=== PATIENT | male | born 1935 | race Caucasian/White ===

== ENCOUNTER → 2021-07-29 | Outpatient (CLI) | payer MEDICARE ==
[~2021-07-29] MED LIST: Z.0.ALLOPURINOL300 M PO
== END ==
LOC: US 12:30
PROVIDERS: ATTEND Internal Medicine Nephrology
DX: N17.9 Acute kidney failure, unspecified (principal)
CPT/HCPCS: 76770; 76857

== ENCOUNTER 2021-10-31 20:39 | Emergency (ER) | payer MEDICARE ==
[~2021-10-31] VITALS: Ht 180.3 cm; Wt 81.6 kg
[2021-10-31] MEDS ORDERED: ONDANSETRON HCL INJ 2MG/ML 2ML 2 MG/ML VIAL IV STA (21:34)
[2021-10-31 22:19] LABS: BASOPHILS % 0.4 % (0.0-1.0); EOSINOPHILS # (AUTO) 0.1 (0.0-0.4); EOSINOPHILS % 0.6 % (0.0-6.0); HEMATOCRIT 32.6 % (38.2-49.6); HEMOGLOBIN 10.8 g/dL (14.0-18.0); LYMPHOCYTES # (AUTO) 0.4 (1.0-3.2); LYMPHOCYTES % 4.8 % (18.0-39.1); MEAN CORPUSCULAR HEMOGLOBIN 31.8 pg (28-32); MEAN CORPUSCULAR HGB CONC 33.1 g/dL (31-35); MEAN CORPUSCULAR VOLUME 95.9 fL (81-99); MONOCYTES # (AUTO) 1.3 (0.2-0.8); MONOCYTES % 13.9 % (4.4-11.3); NEUTROPHILS # (AUTO) 7.2 (2.1-6.9); PLATELET COUNT 208 x10e3/uL (140-360); RED CELL DISTRIBUTION WIDTH 12.6 % (11.7-14.4)
[2021-10-31 22:37] LABS: ALBUMIN 3.1 g/dL (3.5-5.0); ALBUMIN/GLOBULIN RATIO 0.6 (0.8-2.0); ANION GAP 17.3 mmol/L (8-16); CALCIUM 8.8 mg/dL (8.4-10.2); CREATININE, SERUM 1.48 mg/dL (0.72-1.25); POTASSIUM 4.3 mmol/L (3.5-5.1)
[2021-10-31 22:44] LABS: CREATINE KINASE MB 2.1 ng/mL (0-5.0)
[2021-11-01 00:02] VITALS: BP 135/71
== END 2021-11-01 00:07 | disposition home or self-care (01) ==
LOC: ER 20:50
DX: R50.9 Fever, unspecified (principal); U07.1 COVID-19; R05.9 Cough, unspecified; E78.5 Hyperlipidemia, unspecified; E78.00 Pure hypercholesterolemia, unspecified; M10.9 Gout, unspecified; Z95.810 Presence of automatic (implantable) cardiac defibrillator; Z95.1 Presence of aortocoronary bypass graft
CPT/HCPCS: 36415; 70450; 71045; 80053; 82550; 82553; 84484; 85025; 93005; 99284; J2405; U0002

== ENCOUNTER 2021-11-03 05:47 | Inpatient (IN) | payer MEDICARE ==
[~2021-11-03] VITALS: Ht 180.3 cm; Wt 81.6 kg
[2021-11-03] MEDS ORDERED: SODIUM CHLORIDE 0.9% 1000ML 1,000 ML IV STA (06:01)
[2021-11-03 06:09] LABS: BASOPHILS % 0.2 % (0.0-1.0); HEMATOCRIT 31.6 % (38.2-49.6); LYMPHOCYTES # (AUTO) 0.5 (1.0-3.2); MEAN CORPUSCULAR HEMOGLOBIN 31.3 pg (28-32); MEAN CORPUSCULAR HGB CONC 34.8 g/dL (31-35); MONOCYTES % 6.3 % (4.4-11.3); NEUTROPHILS # (AUTO) 14.6 (2.1-6.9); NEUTROPHILS % 89.4 % (38.7-80.0); PLATELET COUNT 202 x10e3/uL (140-360); RED BLOOD COUNT 3.51 x10e6/uL (4.3-5.7); RED CELL DISTRIBUTION WIDTH 12.1 % (11.7-14.4)
[2021-11-03] MEDS ORDERED: ONDANSETRON HCL INJ 2MG/ML 2ML 2 MG/ML VIAL IV PRN ×2 (06:15→07:45)
[2021-11-03 06:33] LABS: ALBUMIN 2.4 g/dL (3.5-5.0); ALBUMIN/GLOBULIN RATIO 0.6 (0.8-2.0); CALCIUM 8.3 mg/dL (8.4-10.2); CREATININE, SERUM 1.5 mg/dL (0.72-1.25)
[2021-11-03] MEDS ORDERED: IOPAMIDOL 370 MG/ML 100 ML INFUS..BTL INJ ONE (06:57)
[2021-11-03 08:30] LABS: BAND NEUTROPHILS % (MANUAL) 2 %; LYMPHOCYTES % (MANUAL) 1 % (19-48); MONOCYTES % (MANUAL) 2 % (3.4-9.0); NEUTROPHILS % (MANUAL) 95 % (40-74); PLATELET ESTIMATE ADEQUATE; PLATELET MORPHOLOGY COMMENT NORMAL; RBC MORPHOLOGY COMMENT NORMAL
[2021-11-03 08:52] LABS: CLARITY,URINE CLEAR (CLEAR); COLOR,URINE YELLOW (YELLOW)
[2021-11-03 08:53] LABS: KETONES,URINE 1+ (NEGATIVE); LEUKOCYTE ESTERASE ,URINE NEGATIVE (NEGATIVE); NITRITE,URINE NEGATIVE (NEGATIVE); PROTEIN,URINE DIPSTICK 1+ (NEGATIVE); URINE UROBILINOGEN 1 mg/dL (0.2 - 1)
[2021-11-03 08:57] LABS: BACTERIA,URINE FEW /HPF; EPITHELIAL CELLS,URINE FEW /LPF
[2021-11-03 10:20] VITALS: BP 141/70
[2021-11-03] MEDS ORDERED: SODIUM CHLORIDE 0.9% 1000ML 1,000 ML IV SCH (11:00)
[2021-11-03 14:23] LABS: ANION GAP 17.4 mmol/L (8-16); CALCIUM 8.5 mg/dL (8.4-10.2); CREATININE, SERUM 1.2 mg/dL (0.72-1.25); POTASSIUM 4.4 mmol/L (3.5-5.1)
[2021-11-03] MEDS: FAMOTIDINE 20 MG TAB PO SCH (16:32)
[2021-11-03] MEDS: ENOXAPARIN SOD INJ 40 MG/0.4 ML SYR SC SCH (16:33)
[2021-11-03 16:34] VITALS: BP 146/72
[2021-11-03] MEDS ORDERED: MIDODRINE HCL5 MG PO (17:11)
[2021-11-03] MEDS ORDERED: ALBUTEROL/IPRATROPIUM 3 ML NEB NEB PRN (17:30)
[2021-11-03] MEDS: SODIUM CHLORIDE 0.9% 1000ML 1,000 ML IV SCH (18:11)
[2021-11-03] MEDS ORDERED: ENOXAPARIN INJ 80 MG/0.8 ML SYR SC SCH (18:15)
[2021-11-03] MEDS: DEXAMETHASONE SOD PHOS 10 MG/1 ML VIAL IV SCH (18:44)
[2021-11-03] MEDS: ACETAMINOPHEN 325 MG TAB PO PRN (18:56)
[2021-11-03] MEDS: ASCORBIC ACID 500 MG TAB PO SCH (19:21)
[2021-11-03] MEDS: ZINC SULFATE 50 MG CAP PO SCH (19:21)
[2021-11-03] MEDS ORDERED: REMDESIVIR 100MG 200 MG in SODIUM CHLORIDE 0.9% 100 ML IV SCH (19:45)
[2021-11-03 21:25] VITALS: BP 138/70
[2021-11-04] VITALS (8 sets, daily range): BP systolic 141–167; BP diastolic 74–98
[2021-11-04] MEDS: SODIUM CHLORIDE 0.9% 1000ML 1,000 ML IV SCH (05:04)
[2021-11-04 06:02] LABS: BASOPHILS % 0.1 % (0.0-1.0); HEMATOCRIT 32.3 % (38.2-49.6); HEMOGLOBIN 10.8 g/dL (14.0-18.0); LYMPHOCYTES # (AUTO) 0.3 (1.0-3.2); LYMPHOCYTES % 2.1 % (18.0-39.1); MEAN CORPUSCULAR HEMOGLOBIN 31.4 pg (28-32); MEAN CORPUSCULAR HGB CONC 33.4 g/dL (31-35); MEAN CORPUSCULAR VOLUME 93.9 fL (81-99); MONOCYTES # (AUTO) 0.7 (0.2-0.8); MONOCYTES % 4.8 % (4.4-11.3); NEUTROPHILS # (AUTO) 14.1 (2.1-6.9); NEUTROPHILS % 91.4 % (38.7-80.0); PLATELET COUNT 212 x10e3/uL (140-360); RED BLOOD COUNT 3.44 x10e6/uL (4.3-5.7); RED CELL DISTRIBUTION WIDTH 12.5 % (11.7-14.4)
[2021-11-04 06:34] LABS: ANION GAP 16.6 mmol/L (8-16); CALCIUM 8.5 mg/dL (8.4-10.2); CREATININE, SERUM 1.05 mg/dL (0.72-1.25); POTASSIUM 4.6 mmol/L (3.5-5.1)
[2021-11-04] MEDS: DEXAMETHASONE SOD PHOS 10 MG/1 ML VIAL IV SCH (09:12)
[2021-11-04] MEDS: CEFTRIAXONE 2 GM in SODIUM CHLORIDE 0.9% 100 ML IV SCH (09:12)
[2021-11-04] MEDS: ASCORBIC ACID 500 MG TAB PO SCH ×2 (09:13→18:12)
[2021-11-04] MEDS: ALLOPURINOL 300 MG TAB PO SCH (09:13)
[2021-11-04] MEDS: ZINC SULFATE 50 MG CAP PO SCH (09:18)
[2021-11-04] MEDS: FAMOTIDINE 20 MG TAB PO SCH ×2 (09:18→16:51)
[2021-11-04 09:25] LABS: BASOPHILS % 0.1 % (0.0-1.0); EOSINOPHILS % 0.1 % (0.0-6.0); HEMATOCRIT 32.4 % (38.2-49.6); HEMOGLOBIN 11.1 g/dL (14.0-18.0); LYMPHOCYTES # (AUTO) 0.4 (1.0-3.2); LYMPHOCYTES % 2.4 % (18.0-39.1); MEAN CORPUSCULAR HEMOGLOBIN 31.2 pg (28-32); MEAN CORPUSCULAR HGB CONC 34.3 g/dL (31-35); MONOCYTES # (AUTO) 0.9 (0.2-0.8); MONOCYTES % 5.3 % (4.4-11.3); NEUTROPHILS # (AUTO) 14.8 (2.1-6.9); NEUTROPHILS % 90.5 % (38.7-80.0); PLATELET COUNT 258 x10e3/uL (140-360); RED BLOOD COUNT 3.56 x10e6/uL (4.3-5.7); RED CELL DISTRIBUTION WIDTH 12.3 % (11.7-14.4)
[2021-11-04 09:48] LABS: ALBUMIN 2.2 g/dL (3.5-5.0); ALBUMIN/GLOBULIN RATIO 0.5 (0.8-2.0); ANION GAP 17.4 mmol/L (8-16); CALCIUM 8.5 mg/dL (8.4-10.2); CREATININE, SERUM 1.07 mg/dL (0.72-1.25); POTASSIUM 4.4 mmol/L (3.5-5.1)
[2021-11-04] MEDS: Morphine 2mg Syringe 2 MG/ML SYR IV PRN (10:50)
[2021-11-04 11:33] LABS: BAND NEUTROPHILS % (MANUAL) 2 %; MONOCYTES % (MANUAL) 2 % (3.4-9.0); NEUTROPHILS % (MANUAL) 96 % (40-74); PLATELET ESTIMATE ADEQUATE; PLATELET MORPHOLOGY COMMENT FEW LARGE; RBC MORPHOLOGY COMMENT NORMAL
[2021-11-04] MEDS: REMDESIVIR 100MG 100 MG in SODIUM CHLORIDE 0.9% 100 ML IV SCH (16:02)
[2021-11-04] MEDS: ENOXAPARIN SOD INJ 40 MG/0.4 ML SYR SC SCH (16:50)
[2021-11-05] VITALS (8 sets, daily range): BP systolic 110–164; BP diastolic 68–92
[2021-11-05] MEDS: CEFTRIAXONE 2 GM in SODIUM CHLORIDE 0.9% 100 ML IV SCH (08:06)
[2021-11-05] MEDS: DEXAMETHASONE SOD PHOS 10 MG/1 ML VIAL IV SCH (08:06)
[2021-11-05] MEDS: FAMOTIDINE 20 MG TAB PO SCH ×2 (08:06→18:03)
[2021-11-05] MEDS: ALLOPURINOL 300 MG TAB PO SCH (08:07)
[2021-11-05] MEDS: ZINC SULFATE 50 MG CAP PO SCH (08:07)
[2021-11-05] MEDS: DOCUSATE SODIUM 100 MG CAP PO SCH (08:07)
[2021-11-05] MEDS: SODIUM CHLORIDE 0.9% 1000ML 1,000 ML IV SCH (09:30)
[2021-11-05 10:29] LABS: BASOPHILS % 0.2 % (0.0-1.0); HEMATOCRIT 33.6 % (38.2-49.6); HEMOGLOBIN 11.5 g/dL (14.0-18.0); LYMPHOCYTES # (AUTO) 0.7 (1.0-3.2); LYMPHOCYTES % 3.4 % (18.0-39.1); MEAN CORPUSCULAR HEMOGLOBIN 31.3 pg (28-32); MEAN CORPUSCULAR HGB CONC 34.2 g/dL (31-35); MEAN CORPUSCULAR VOLUME 91.6 fL (81-99); MONOCYTES # (AUTO) 1.2 (0.2-0.8); MONOCYTES % 5.8 % (4.4-11.3); NEUTROPHILS # (AUTO) 17.6 (2.1-6.9); NEUTROPHILS % 88.5 % (38.7-80.0); PLATELET COUNT 292 x10e3/uL (140-360); RED BLOOD COUNT 3.67 x10e6/uL (4.3-5.7); RED CELL DISTRIBUTION WIDTH 12.8 % (11.7-14.4)
[2021-11-05 10:44] LABS: ALBUMIN 2.3 g/dL (3.5-5.0); ALBUMIN/GLOBULIN RATIO 0.5 (0.8-2.0); ANION GAP 16.5 mmol/L (8-16); CALCIUM 9.4 mg/dL (8.4-10.2); POTASSIUM 4.5 mmol/L (3.5-5.1)
[2021-11-05 11:21] LABS: BAND NEUTROPHILS % (MANUAL) 1 %; LYMPHOCYTES % (MANUAL) 5 % (19-48); MONOCYTES % (MANUAL) 3 % (3.4-9.0); NEUTROPHILS % (MANUAL) 91 % (40-74)
[2021-11-05 11:22] LABS: PLATELET ESTIMATE ADEQUATE; PLATELET MORPHOLOGY COMMENT NORMAL; RBC MORPHOLOGY COMMENT NORMAL
[2021-11-05] MEDS: REMDESIVIR 100MG 100 MG in SODIUM CHLORIDE 0.9% 100 ML IV SCH (14:29)
[2021-11-05] MEDS: ENOXAPARIN SOD INJ 40 MG/0.4 ML SYR SC SCH (18:02)
[2021-11-05] MEDS: ASCORBIC ACID 500 MG TAB PO SCH (18:02)
[2021-11-05] MEDS: ATORVASTATIN 10 MG TAB PO SCH (21:22)
[2021-11-06] VITALS (7 sets, daily range): BP systolic 131–168; BP diastolic 62–88
[2021-11-06] MEDS: SODIUM CHLORIDE 0.9% 1000ML 1,000 ML IV SCH ×2 (01:00→11:14)
[2021-11-06 06:17] LABS: BASOPHILS # (AUTO) 0.1 (0.0-0.1); BASOPHILS % 0.4 % (0.0-1.0); EOSINOPHILS % 0.1 % (0.0-6.0); HEMATOCRIT 33.5 % (38.2-49.6); HEMOGLOBIN 11.6 g/dL (14.0-18.0); LYMPHOCYTES # (AUTO) 0.8 (1.0-3.2); LYMPHOCYTES % 5.9 % (18.0-39.1); MEAN CORPUSCULAR HEMOGLOBIN 31.1 pg (28-32); MEAN CORPUSCULAR HGB CONC 34.6 g/dL (31-35); MEAN CORPUSCULAR VOLUME 89.8 fL (81-99); MONOCYTES # (AUTO) 1.3 (0.2-0.8); MONOCYTES % 9.8 % (4.4-11.3); NEUTROPHILS # (AUTO) 10.7 (2.1-6.9); NEUTROPHILS % 79.5 % (38.7-80.0); PLATELET COUNT 228 x10e3/uL (140-360); RED BLOOD COUNT 3.73 x10e6/uL (4.3-5.7); RED CELL DISTRIBUTION WIDTH 13.1 % (11.7-14.4)
[2021-11-06 06:32] LABS: ALBUMIN 1.9 g/dL (3.5-5.0); ALBUMIN/GLOBULIN RATIO 0.5 (0.8-2.0); CREATININE, SERUM 0.83 mg/dL (0.72-1.25)
[2021-11-06] MEDS: CEFTRIAXONE 2 GM in SODIUM CHLORIDE 0.9% 100 ML IV SCH (09:35)
[2021-11-06] MEDS: FAMOTIDINE 20 MG TAB PO SCH ×2 (09:35→17:23)
[2021-11-06] MEDS: DOCUSATE SODIUM 100 MG CAP PO SCH (09:35)
[2021-11-06] MEDS: ASCORBIC ACID 500 MG TAB PO SCH ×2 (09:35→17:23)
[2021-11-06] MEDS: ZINC SULFATE 50 MG CAP PO SCH (09:35)
[2021-11-06] MEDS: ALLOPURINOL 300 MG TAB PO SCH (09:35)
[2021-11-06] MEDS: DEXAMETHASONE SOD PHOS 10 MG/1 ML VIAL IV SCH (09:36)
[2021-11-06] MEDS: Morphine 2mg Syringe 2 MG/ML SYR IV PRN (11:16)
[2021-11-06] MEDS: REMDESIVIR 100MG 100 MG in SODIUM CHLORIDE 0.9% 100 ML IV SCH (14:08)
[2021-11-06] MEDS: ENOXAPARIN SOD INJ 40 MG/0.4 ML SYR SC SCH (16:18)
[2021-11-06] MEDS: BISACODYL 5 MG TAB EC PO PRN (17:24)
[2021-11-06] MEDS: ATORVASTATIN 10 MG TAB PO SCH (20:05)
[2021-11-07] VITALS (7 sets, daily range): BP systolic 117–171; BP diastolic 85–94
[2021-11-07] MEDS: SODIUM CHLORIDE 0.9% 1000ML 1,000 ML IV SCH ×2 (03:05→17:26)
[2021-11-07] MEDS: HYDRALAZINE HCL 20 MG/ML VIAL IV PRN (05:55)
[2021-11-07 06:06] LABS: BASOPHILS # (AUTO) 0.1 (0.0-0.1); BASOPHILS % 0.5 % (0.0-1.0); HEMOGLOBIN 10.7 g/dL (14.0-18.0); LYMPHOCYTES # (AUTO) 0.9 (1.0-3.2); LYMPHOCYTES % 4.9 % (18.0-39.1); MEAN CORPUSCULAR HEMOGLOBIN 31.3 pg (28-32); MEAN CORPUSCULAR HGB CONC 33.4 g/dL (31-35); MEAN CORPUSCULAR VOLUME 93.6 fL (81-99); MONOCYTES # (AUTO) 1.6 (0.2-0.8); MONOCYTES % 9.2 % (4.4-11.3); NEUTROPHILS % 79.9 % (38.7-80.0); PLATELET COUNT 252 x10e3/uL (140-360); RED BLOOD COUNT 3.42 x10e6/uL (4.3-5.7); RED CELL DISTRIBUTION WIDTH 13.2 % (11.7-14.4)
[2021-11-07 06:29] LABS: ALBUMIN/GLOBULIN RATIO 0.6 (0.8-2.0); ANION GAP 15.1 mmol/L (8-16); CALCIUM 8.2 mg/dL (8.4-10.2); CREATININE, SERUM 0.84 mg/dL (0.72-1.25); POTASSIUM 4.1 mmol/L (3.5-5.1)
[2021-11-07] MEDS: FAMOTIDINE 20 MG TAB PO SCH ×2 (07:30→17:21)
[2021-11-07] MEDS: ASCORBIC ACID 500 MG TAB PO SCH ×2 (09:00→17:21)
[2021-11-07] MEDS: DEXAMETHASONE SOD PHOS 10 MG/1 ML VIAL IV SCH (09:27)
[2021-11-07 11:13] LABS: INR 0.91; PROTHROMBIN TIME 13.1 seconds (11.9-14.5)
[2021-11-07] MEDS ORDERED: BISACODYL 10 MG SUPP PR ONE ×2 (12:00→12:30)
[2021-11-07] MEDS: ALLOPURINOL 300 MG TAB PO SCH (14:12)
[2021-11-07] MEDS: ZINC SULFATE 50 MG CAP PO SCH (14:12)
[2021-11-07] MEDS: DOCUSATE SODIUM 100 MG CAP PO SCH (14:12)
[2021-11-07] MEDS: REMDESIVIR 100MG 100 MG in SODIUM CHLORIDE 0.9% 100 ML IV SCH (14:13)
[2021-11-07 14:18] LABS: BODY FLUID TYPE PERITONEAL
[2021-11-07 14:19] LABS: BODY FLUID APPEARANCE CLOUDY; BODY FLUID COLOR RED
[2021-11-07 14:55] LABS: RBC,BODY FLUID 7000 cells/uL; WBC,BODY FLUID 1144 cells/uL
[2021-11-07 16:22] LABS: LYMPHOCYTES,BODY FLUID 2 %; MONO/MACROPHG,BODY FLUID 11 %; NEUTROPHILS,BODY FLUID 87 %
[2021-11-07] MEDS: ENOXAPARIN SOD INJ 40 MG/0.4 ML SYR SC SCH (17:22)
[2021-11-07] MEDS: ATORVASTATIN 10 MG TAB PO SCH (20:24)
[2021-11-08] VITALS (8 sets, daily range): BP systolic 154–172; BP diastolic 76–99
[2021-11-08] MEDS: SODIUM CHLORIDE 0.9% 1000ML 1,000 ML IV SCH ×2 (05:35→16:51)
[2021-11-08 05:46] LABS: BASOPHILS # (AUTO) 0.2 (0.0-0.1); BASOPHILS % 0.8 % (0.0-1.0); EOSINOPHILS % 0.1 % (0.0-6.0); HEMATOCRIT 33.9 % (38.2-49.6); HEMOGLOBIN 11.9 g/dL (14.0-18.0); LYMPHOCYTES # (AUTO) 1.2 (1.0-3.2); LYMPHOCYTES % 6.5 % (18.0-39.1); MEAN CORPUSCULAR HEMOGLOBIN 31.2 pg (28-32); MEAN CORPUSCULAR HGB CONC 35.1 g/dL (31-35); MEAN CORPUSCULAR VOLUME 88.7 fL (81-99); MONOCYTES # (AUTO) 1.6 (0.2-0.8); MONOCYTES % 8.3 % (4.4-11.3); NEUTROPHILS # (AUTO) 14.1 (2.1-6.9); NEUTROPHILS % 74.3 % (38.7-80.0); PLATELET COUNT 322 x10e3/uL (140-360); RED BLOOD COUNT 3.82 x10e6/uL (4.3-5.7); RED CELL DISTRIBUTION WIDTH 13.2 % (11.7-14.4)
[2021-11-08 06:18] LABS: ALBUMIN 2.2 g/dL (3.5-5.0); ALBUMIN/GLOBULIN RATIO 0.5 (0.8-2.0); ANION GAP 16.9 mmol/L (8-16); CALCIUM 8.3 mg/dL (8.4-10.2); CREATININE, SERUM 0.9 mg/dL (0.72-1.25); POTASSIUM 3.9 mmol/L (3.5-5.1)
[2021-11-08] MEDS: DEXAMETHASONE SOD PHOS 10 MG/1 ML VIAL IV SCH (08:30)
[2021-11-08] MEDS: FAMOTIDINE 20 MG TAB PO SCH ×2 (08:30→16:51)
[2021-11-08] MEDS: ZINC SULFATE 50 MG CAP PO SCH (08:30)
[2021-11-08] MEDS: DOCUSATE SODIUM 100 MG CAP PO SCH (08:30)
[2021-11-08] MEDS: ASCORBIC ACID 500 MG TAB PO SCH ×2 (08:30→16:51)
[2021-11-08] MEDS: ALLOPURINOL 300 MG TAB PO SCH (08:30)
[2021-11-08] MEDS: CEFTRIAXONE 2 GM in SODIUM CHLORIDE 0.9% 100 ML IV SCH (10:05)
[2021-11-08] MEDS: ENOXAPARIN SOD INJ 40 MG/0.4 ML SYR SC SCH (16:51)
[2021-11-08] MEDS: ATORVASTATIN 10 MG TAB PO SCH (21:11)
[2021-11-09] VITALS (8 sets, daily range): BP systolic 150–184; BP diastolic 75–96
[2021-11-09] MEDS: ACETAMINOPHEN 325 MG TAB PO PRN (05:53)
[2021-11-09 09:22] LABS: BASOPHILS # (AUTO) 0.2 (0.0-0.1); BASOPHILS % 0.8 % (0.0-1.0); EOSINOPHILS # (AUTO) 0.1 (0.0-0.4); EOSINOPHILS % 0.4 % (0.0-6.0); HEMATOCRIT 31.9 % (38.2-49.6); HEMOGLOBIN 10.9 g/dL (14.0-18.0); LYMPHOCYTES # (AUTO) 1.7 (1.0-3.2); LYMPHOCYTES % 8.9 % (18.0-39.1); MEAN CORPUSCULAR HEMOGLOBIN 31.2 pg (28-32); MEAN CORPUSCULAR HGB CONC 34.2 g/dL (31-35); MEAN CORPUSCULAR VOLUME 91.4 fL (81-99); MONOCYTES # (AUTO) 1.8 (0.2-0.8); MONOCYTES % 9.8 % (4.4-11.3); NEUTROPHILS # (AUTO) 12.7 (2.1-6.9); NEUTROPHILS % 67.7 % (38.7-80.0); PLATELET COUNT 317 x10e3/uL (140-360); RED BLOOD COUNT 3.49 x10e6/uL (4.3-5.7)
[2021-11-09] MEDS ORDERED: ONDANSETRON HCL 4 MG ORAL DISINTEGRATING TAB PO PRN (09:30)
[2021-11-09 09:43] LABS: ALBUMIN 2.1 g/dL (3.5-5.0); ALBUMIN/GLOBULIN RATIO 0.6 (0.8-2.0); ANION GAP 14.6 mmol/L (8-16); CREATININE, SERUM 0.86 mg/dL (0.72-1.25); POTASSIUM 3.6 mmol/L (3.5-5.1)
[2021-11-09 10:25] LABS: BAND NEUTROPHILS % (MANUAL) 1 %; LYMPHOCYTES % (MANUAL) 7 % (19-48); METAMYELOCYTES % (MANUAL) 1 % (0-0); MONOCYTES % (MANUAL) 2 % (3.4-9.0); MYELOCYTES % (MANUAL) 7 % (0-0); NEUTROPHILS % (MANUAL) 81 % (40-74); PLATELET ESTIMATE ADEQUATE; RBC MORPHOLOGY COMMENT NORMAL
[2021-11-09 10:26] LABS: PLATELET MORPHOLOGY COMMENT FEW LARGE
[2021-11-09] MEDS: CEFTRIAXONE 2 GM in SODIUM CHLORIDE 0.9% 100 ML IV SCH (11:05)
[2021-11-09] MEDS: SODIUM CHLORIDE 0.9% 1000ML 1,000 ML IV SCH (11:05)
[2021-11-09] MEDS: DEXAMETHASONE SOD PHOS 10 MG/1 ML VIAL IV SCH (11:06)
[2021-11-09] MEDS: ASCORBIC ACID 500 MG TAB PO SCH ×2 (11:06→16:58)
[2021-11-09] MEDS: ZINC SULFATE 50 MG CAP PO SCH (11:06)
[2021-11-09] MEDS: ALLOPURINOL 300 MG TAB PO SCH (11:06)
[2021-11-09] MEDS: DOCUSATE SODIUM 100 MG CAP PO SCH (11:06)
[2021-11-09] MEDS: FAMOTIDINE 20 MG TAB PO SCH ×2 (11:06→16:58)
[2021-11-09] MEDS: Morphine 2mg Syringe 2 MG/ML SYR IV PRN (14:01)
[2021-11-09] MEDS: ENOXAPARIN SOD INJ 40 MG/0.4 ML SYR SC SCH (16:59)
[2021-11-09] MEDS: HYDRALAZINE HCL 20 MG/ML VIAL IV PRN (17:05)
[2021-11-09] MEDS: ATORVASTATIN 10 MG TAB PO SCH (20:15)
[2021-11-09] MEDS: BISACODYL 5 MG TAB EC PO PRN (20:15)
[2021-11-10] VITALS (8 sets, daily range): BP systolic 140–161; BP diastolic 74–86
[2021-11-10] MEDS: SODIUM CHLORIDE 0.9% 1000ML 1,000 ML IV SCH (01:52)
[2021-11-10] MEDS: HYDRALAZINE HCL 20 MG/ML VIAL IV PRN (06:08)
[2021-11-10 06:13] LABS: BASOPHILS # (AUTO) 0.1 (0.0-0.1); BASOPHILS % 0.5 % (0.0-1.0); EOSINOPHILS # (AUTO) 0.1 (0.0-0.4); EOSINOPHILS % 0.3 % (0.0-6.0); HEMOGLOBIN 10.4 g/dL (14.0-18.0); LYMPHOCYTES # (AUTO) 1.6 (1.0-3.2); MEAN CORPUSCULAR HEMOGLOBIN 30.5 pg (28-32); MEAN CORPUSCULAR HGB CONC 34.7 g/dL (31-35); MONOCYTES # (AUTO) 1.9 (0.2-0.8); MONOCYTES % 9.6 % (4.4-11.3); NEUTROPHILS # (AUTO) 14.5 (2.1-6.9); NEUTROPHILS % 72.1 % (38.7-80.0); PLATELET COUNT 329 x10e3/uL (140-360); RED BLOOD COUNT 3.41 x10e6/uL (4.3-5.7)
[2021-11-10 06:33] LABS: ALBUMIN 2.2 g/dL (3.5-5.0); ALBUMIN/GLOBULIN RATIO 0.6 (0.8-2.0); ANION GAP 13.9 mmol/L (8-16); CALCIUM 8.2 mg/dL (8.4-10.2); CREATININE, SERUM 0.81 mg/dL (0.72-1.25); POTASSIUM 3.9 mmol/L (3.5-5.1)
[2021-11-10 08:31] LABS: LYMPHOCYTES % (MANUAL) 1 % (19-48); METAMYELOCYTES % (MANUAL) 3 % (0-0); MONOCYTES % (MANUAL) 8 % (3.4-9.0); MYELOCYTES % (MANUAL) 5 % (0-0); NEUTROPHILS % (MANUAL) 83 % (40-74); PLATELET ESTIMATE ADEQUATE; PLATELET MORPHOLOGY COMMENT NORMAL; RBC MORPHOLOGY COMMENT NORMAL
[2021-11-10] MEDS: DOCUSATE SODIUM 100 MG CAP PO SCH (08:53)
[2021-11-10] MEDS: DEXAMETHASONE SOD PHOS 10 MG/1 ML VIAL IV SCH (08:53)
[2021-11-10] MEDS: FAMOTIDINE 20 MG TAB PO SCH ×2 (08:53→16:39)
[2021-11-10] MEDS: ZINC SULFATE 50 MG CAP PO SCH (08:53)
[2021-11-10] MEDS: ASCORBIC ACID 500 MG TAB PO SCH ×2 (08:53→16:39)
[2021-11-10] MEDS: ALLOPURINOL 300 MG TAB PO SCH (08:53)
[2021-11-10] MEDS: ENOXAPARIN SOD INJ 40 MG/0.4 ML SYR SC SCH (16:41)
[2021-11-10] MEDS: ATORVASTATIN 10 MG TAB PO SCH (21:13)
[2021-11-10] MEDS: BISACODYL 5 MG TAB EC PO PRN (21:13)
[2021-11-10] MEDS: ACETAMINOPHEN 325 MG TAB PO PRN (21:13)
[2021-11-11] VITALS: BP 165/87
[2021-11-11 04:00] VITALS: BP 162/77
[2021-11-11] MEDS: SODIUM CHLORIDE 0.9% 1000ML 1,000 ML IV SCH (04:32)
[2021-11-11 05:50] LABS: BASOPHILS # (AUTO) 0.1 (0.0-0.1); BASOPHILS % 0.3 % (0.0-1.0); EOSINOPHILS % 0.2 % (0.0-6.0); HEMOGLOBIN 10.5 g/dL (14.0-18.0); LYMPHOCYTES # (AUTO) 1.5 (1.0-3.2); LYMPHOCYTES % 7.9 % (18.0-39.1); MEAN CORPUSCULAR HEMOGLOBIN 31.3 pg (28-32); MEAN CORPUSCULAR VOLUME 89.6 fL (81-99); MONOCYTES # (AUTO) 1.9 (0.2-0.8); MONOCYTES % 9.8 % (4.4-11.3); NEUTROPHILS # (AUTO) 14.5 (2.1-6.9); NEUTROPHILS % 74.9 % (38.7-80.0); PLATELET COUNT 311 x10e3/uL (140-360); RED BLOOD COUNT 3.35 x10e6/uL (4.3-5.7); RED CELL DISTRIBUTION WIDTH 13.2 % (11.7-14.4)
[2021-11-11 06:11] LABS: ANION GAP 15.9 mmol/L (8-16); CALCIUM 8.1 mg/dL (8.4-10.2); CREATININE, SERUM 0.83 mg/dL (0.72-1.25); POTASSIUM 3.9 mmol/L (3.5-5.1)
[2021-11-11 08:51] VITALS: BP 155/76
[2021-11-11 08:58] VITALS: BP 155/76
[2021-11-11] MEDS: ASCORBIC ACID 500 MG TAB PO SCH (09:11)
[2021-11-11] MEDS: ZINC SULFATE 50 MG CAP PO SCH (09:11)
[2021-11-11] MEDS: FAMOTIDINE 20 MG TAB PO SCH (09:11)
[2021-11-11] MEDS: DOCUSATE SODIUM 100 MG CAP PO SCH (09:11)
[2021-11-11] MEDS: ALLOPURINOL 300 MG TAB PO SCH (09:11)
[2021-11-11] MEDS ORDERED: Docusate Sodium PO (10:48)
[2021-11-11] MEDS ORDERED: LIPITOR10 MG PO (10:48)
[2021-11-11] MEDS ORDERED: AUGMENTIN 500-1 EACH PO (10:48)
[2021-11-11] MEDS ORDERED: ASCORBIC ACID500 MG PO (10:48)
[2021-11-11] MEDS ORDERED: ACIDOPHILUS1 EAC1 PO (11:03)
[2021-11-11] MEDS ORDERED: BISACODYL 10 MG SUPP PR ONE (11:30)
[2021-11-11 12:10] VITALS: BP 160/81
[2021-11-11 15:46] VITALS: BP 154/81
[2021-11-11] MEDS ORDERED: AMOXICILLIN/CLAVULANATE K 500 MG TAB PO SCH (21:00)
== END 2021-11-11 16:23 | disposition home or self-care (01) | DRG 177 ==
LOC: ER 05:52 → ERHOLD 07:34 → MED/SURG2 10:15 → OBSVTOIN 11-04 15:06
PROVIDERS: ADMIT Internal Medicine; ATTEND Internal Medicine
PROC: XW033E5 Introduction of Remdesivir Anti-infective into Peripheral Vein, Percutaneous Approach, New Technology Group 5 (ICD-10-PCS; principal; 2021-11-03)
PROC: 3E0333Z Introduction of Anti-inflammatory into Peripheral Vein, Percutaneous Approach (ICD-10-PCS; 2021-11-03)
PROC: 3E03329 Introduction of Other Anti-infective into Peripheral Vein, Percutaneous Approach (ICD-10-PCS; 2021-11-03)
PROC: 0W9B3ZZ Drainage of Left Pleural Cavity, Percutaneous Approach (ICD-10-PCS; 2021-11-07)
DX: U07.1 COVID-19 (principal); G93.41 Metabolic encephalopathy; J12.82 Pneumonia due to coronavirus disease 2019; J15.9 Unspecified bacterial pneumonia; J69.0 Pneumonitis due to inhalation of food and vomit; E87.1 Hypo-osmolality and hyponatremia; N17.9 Acute kidney failure, unspecified; J90 Pleural effusion, not elsewhere classified; R62.7 Adult failure to thrive; E78.5 Hyperlipidemia, unspecified; I25.10 Atherosclerotic heart disease of native coronary artery without angina pectoris; E86.0 Dehydration; R09.02 Hypoxemia; E78.00 Pure hypercholesterolemia, unspecified; Z95.5 Presence of coronary angioplasty implant and graft; Z95.1 Presence of aortocoronary bypass graft; Z95.810 Presence of automatic (implantable) cardiac defibrillator; Z82.49 Family history of ischemic heart disease and other diseases of the circulatory system; Z68.25 Body mass index [BMI] 25.0-25.9, adult
CPT/HCPCS: 0223U; 32555; 36415; 70450; 71045; 71046; 71250; 74018; 74177; 74230; 74470; 80048; 80053; 81001; 82607; 82746; 82948; 83615; 83690; 84157; 84443; 84484; 85025; 85610; 87040; 87070; 87186; 87205; 88112; 88300; 88305; 89051; 93005; 94640; 94799; 96361; 99251; 99285; G0378; J0248; J0360; J0456; J0696; J1100; J1650; J2270; J2405; J2543; J7030; J7050; Q9967

== ENCOUNTER 2021-12-05 03:17 | Emergency (ER) | payer MEDICARE ==
[~2021-12-05] VITALS: Ht 180.3 cm; Wt 81.6 kg
[~2021-12-05 03:17] MED LIST changes: +ACIDOPHILUS1 EAC1 PO; +ASCORBIC ACID500 MG PO; +AUGMENTIN 500-1 EACH PO; +Docusate Sodium PO; +LIPITOR10 MG PO; +MIDODRINE HCL5 MG PO
== END 2021-12-05 03:45 | disposition home or self-care (01) ==
LOC: ER 03:22
DX: K56.41 Fecal impaction (principal); E78.5 Hyperlipidemia, unspecified; M10.9 Gout, unspecified; Z95.1 Presence of aortocoronary bypass graft; Z95.810 Presence of automatic (implantable) cardiac defibrillator
CPT/HCPCS: 99282